=== PATIENT | male | born 1960 | race Caucasian/White ===

== ENCOUNTER 2017-01-30 17:40 | Emergency (ER) | payer OTHER ==
[~2017-01-30] VITALS: Ht 172.7 cm; Wt 77.1 kg
[2017-01-30 17:40] VITALS: BP 125/75
[~2017-01-30 17:40] MED LIST: ACETAMINOPHEN-1 EAC1 ORAL; KLONOPIN0.5 MG ORAL; NKM; QUETIAPINE FUM300 MG PO; UNOBMED; [UNRECOGNIZED DRUG - OTHER]
[2017-01-30] MEDS ORDERED: Tetanus/Diptheria/Pertussis Vaccine 0.5ml Syr IM ONE (17:45)
[2017-01-30] MEDS ORDERED: Bacitracin Oint UD TOPIC ONE (17:45)
[2017-01-30 19:11] VITALS: BP 131/78
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
--- NOTE | 2017-01-31 11:33 | Diagnostic Imaging Report ---
Indication: Head trauma, pain Technique: Continuous helical CT scanning of the head was performed without intravenous contrast material. Axial and coronal 5 mm sections were generated. Dose: Total Dose Length Product - DLP [address] Dose Index - CTDIvol(s) 70.38 mGy. Comparison: 10/04/2013 Findings: The ventricles are considerably dilated. There is prominence of cortical sulci. Some periventricular low density is present. There is no shift of midline structures. No abnormal extra-axial fluid collections are noted. There is no evidence of intracerebral bleeding. No other abnormal high or low density areas are noted within the brain. Impression: Diffuse atrophy. Chronic small vessel white matter ischemic change. Ventricular dilatation somewhat out of proportion to cortical sulcal prominence. The possibility of normal pressure hydrocephalus or central volume loss should also be considered. There are The above report is concordant with preliminary reading by [facility] . The CT scanner at [facility] is accredited by the [employer] and the scans are performed using protocols designed to limit radiation exposure to as low as reasonably achievable to attain images of sufficient resolution adequate for diagnostic evaluation.
== END 2017-01-30 19:11 | disposition home or self-care (01) ==
LOC: EDBD 17:40 → EMR 17:50
DX: S01.81XA Laceration without foreign body of other part of head, initial encounter (principal); W01.0XXA Fall on same level from slipping, tripping and stumbling without subsequent striking against object, initial encounter; Y92.410 Unspecified street and highway as the place of occurrence of the external cause; Z23 Encounter for immunization; F10.129 Alcohol abuse with intoxication, unspecified; R51 Headache; G31.9 Degenerative disease of nervous system, unspecified
CPT/HCPCS: 12013; 70450; 90471; 90715; 99284; Z7502

== ENCOUNTER 2018-04-08 20:52 | Emergency (ER) | payer OTHER ==
[~2018-04-08] VITALS: Ht 167.6 cm; Wt 68.0 kg
[2018-04-08 21:15] VITALS: BP 130/85
[2018-04-09 02:00] VITALS: BP 126/80
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
== END 2018-04-09 02:00 | disposition home or self-care (01) ==
LOC: EDUNIT# 20:52 → EDBD 20:52 → EMR 21:16
DX: S00.93XA Contusion of unspecified part of head, initial encounter (principal); X58.XXXA Exposure to other specified factors, initial encounter; Y92.89 Other specified places as the place of occurrence of the external cause; R51 Headache; Z99.3 Dependence on wheelchair; Z53.29 Procedure and treatment not carried out because of patient's decision for other reasons
CPT/HCPCS: 99282